=== PATIENT | female | born 1960 | race Hispanic/Latino ===

== ENCOUNTER 2017-10-24 05:42 | Day surgery (SDC) | payer MEDICAID ==
[2017-10-24] MEDS ORDERED: VIGAMOX OS SCH (06:00)
[2017-10-24] MEDS ORDERED: TETRACAINE 0.5% OS PRN ×2 (06:00)
[2017-10-24] MEDS ORDERED: MYDRIACYL OS SCH (06:00)
[2017-10-24] MEDS: MYDRIACYL OS SCH ×3 (06:50→07:00)
[2017-10-24] MEDS: VIGAMOX OS SCH ×3 (06:50→07:00)
[2017-10-24] MEDS: AK-Dilate OS SCH ×3 (06:50→07:00)
[2017-10-24] MEDS ORDERED: SUBLIMAZE ONE (07:02)
[2017-10-24] MEDS ORDERED: VERSED ONE (07:02)
--- NOTE | 2017-10-24 07:14 | Anesthesia Consultation ---
Anesthesia Consult and Med Hx Date of service: 10/24/17 - Airway Anesthetic Teeth Evaluation: Poor, Caps, Partials ROM Head & Neck: Adequate Mental/Hyoid Distance: Adequate Mallampati Class: Class II Intubation Access Assessment: Probably Good - Pulmonary Exam CTA: Yes - Cardiac Exam Cardiac Exam: RRR - Pre-Operative Health Status ASA Pre-Surgery Classification: ASA2 Proposed Anesthetic Plan: MAC - Pulmonary Hx Smoking: Yes (1/2 PPD SINCE HER 20'S) - Cardiovascular System Hx Hypertension: Yes (OVER 40 YEARS.not on meds) - Central Nervous System Hx Psychiatric Problems: No - Gastrointestinal Hx Gastroesophageal Reflux Disease: Yes - Other Systems Hx Alcohol Use: No Hx Substance Use: No Hx Cancer: No - Additional Comments Anesthesia Medical History Comments: Informed consent obtained
--- NOTE | 2017-10-24 07:14 | Anesthesia Day of Surgery ---
Anesthesia Day of Surgery - Day of Surgery Patient Examined: Yes Patient H&P Reviewed: Yes Patient is NPO: Yes
[2017-10-24] MEDS ORDERED: WATER FOR INJ (PF) 10 ML ONE (07:48)
[2017-10-24] MEDS ORDERED: LACTATED RINGERS 1,000 ML ONE (08:09)
--- NOTE | 2017-10-24 08:21 | Operative Report ---
Operative Report Operative Report: PATIENT'S NAME: DATE OF : DATE OF SURGERY: 10/24/2017 PREOPERATIVE DIAGNOSIS: Cataract left eye POSTOPERATIVE DIAGNOSIS: Same OPERATIVE PROCEDURE: Phacoemulsification with intraocular lens implantation, left eye SURGEON: Mara Wharton M.D. DIRECTOR TRADING SURGEON: Ernesto Lens: [id number] 24.0 D ANESTHESIA: Monitored anesthesia care in combination with topical and intracameral anesthesia because of the established specific risk of reflux, arrhythmias, or anxiety attacks associated with ocular manipulation, as well as the difficulty of the dock clerk to manage such potentially catastrophic events while simultaneously attempting to complete the surgical procedure and was deemed necessary for the patient's safety to have an Television Schedule Coordinator present during the procedure whenever possible. An Television Schedule Coordinator was utilized to regulate the intravenous sedation of the patient so the patient was cooperative yet not asleep in order for the patient to successfully maintain fixation of the eye on the operating light of the microscope. COMPLICATIONS: No surgical complications No blood loss. ALLERGIES: No known drug allergies PROGNOSIS: Excellent INDICATIONS FOR SURGERY: The patient is undergoing surgery in the hopes of eliminating or improving these visual difficulties. PROCEDURE: After arriving at the surgery center, the patient was given topical anesthetic and dilating drops, as noted in the record. The patient was then taken into the operating room and given more anesthetic drops. The eyelids , lashes, and lid margins were scrubbed with Betadine solution, and the patient was draped. The Nurse Television Schedule Coordinator administered IV sedation and monitored the patient during the procedure. The eye was then fixated with a 0.12, and a stab incision was made in the peripheral clear cornea into the anterior chamber. This was made on my left side. Viscoelastic was next used to fill the anterior chamber. The eye was once again fixated with the 0.12 forceps and a keratome was used make an incision in clear cornea peripherally on my right hand side temporally. The capsule forceps were used to open the central anterior capsule and then make a continuous round capsulotomy. Hydrodissection was carried out utilizing a cannula and balanced salt solution to delineate the cortical material from the capsule and the nucleus from the cortical material. The phaco tip was introduced into the eye and used to remove the anterior cortical material in the area of the capsulotomy. Then the phaco tip was buried into the nucleus, and a chopping instrument was introduced into the eye and used to provide countertraction in the nucleus between this instrument and the phaco tip fracturing the nucleus. This procedure was repeated multiple times, providing multiple small segments of the lens, and then the phaco tip was used to remove each of these segments. An I/A tip was then used to remove the remaining cortex. The anterior chamber was refilled with viscoelastic. An one-piece, acrylic intraocular lens was then placed into an inserting cartridge. The tip of the inserting cartridge was introduced into the keratome incision and into the anterior chamber. The implant was gently advanced through the cartridge and into the eye, where it unfolded, and both haptics were placed in the capsular bag, where it centered nicely and appeared to be well fixated. After placement of the intraocular lens, the I~and~A handpiece was placed back into the eye and used to remove the viscoelastic, including viscoelastic that was behind the optic of the intraocular lens. The anterior chamber was then filled with balanced salt solution, and hydration of the wound was used to cause swelling of the wound and more appropriate watertight closure. When the wound was found to be firm, the patient was asked to comment on how bright the light was. If there was no light perception at all or if the light was substantially dimmer than during the rest of the surgery, the amount of fluid in the eye was decompressed to lower the intraocular pressure until the patient could see the bright light again. This was done to avoid any damage or decreased blood flow to the optic nerve. MEDICATIONS APPLIED AT END OF SURGERY: One drop of Pred Forte and Vigamox The patient was given a shield to wear at night and was instructed not to rub or push on the eye. DISCHARGE SUMMARY: The patient was released in stable condition. The patient and those with the patient were given a written sheet of postoperative instructions and counseling on any abnormal laboratory studies. The patient is to see us tomorrow for follow-up in the office and is to call immediately for any difficulties. Mara Wharton M.D. Date
--- NOTE | 2017-10-24 08:21 | Short Stay Summary ---
Short Stay Documentation Date of service: 10/24/17 - History H&P: obtained from office - Allergies and Medications Current Medications: Allergies No Known Allergies Allergy (Verified 10/23/17 13:03) Home Medications Medication Instructions Recorded Confirmed Last Taken Type Ranitidine HCl [Heartburn Relief] 150 mg PO BID 10/23/17 10/24/17 10/23/17 History Active Medications Acetazolamide (Diamox) 500 mg PO BID ONE Stop: 10/24/17 08:21 Moxifloxacin HCl (Vigamox) 1 drops OS Q5MIN ASIA Stop: 10/24/17 15:00 Last Admin: 10/24/17 07:00 Dose: 1 drops Phenylephrine HCl (Ak-Dilate) 1 drops OS Q5MIN ASIA Stop: 10/24/17 15:00 Last Admin: 10/24/17 07:00 Dose: 1 drops Prednisolone Acetate (Pred Forte 1%) 1 drops OS QID ASIA Tetracaine HCl (Tetracaine 0.5%) 1 drops OS Q5M PRN PRN Reason: Analgesia Stop: 10/24/17 23:59 Last Admin: 10/24/17 06:50 Dose: 1 drops Tropicamide (Mydriacyl) 1 drops OS Q5MIN ASIA Stop: 10/24/17 15:00 Last Admin: 10/24/17 07:00 Dose: 1 drops - Brief post op/procedure progress note Date of procedure: 10/24/17 Pre-op diagnosis: left cataract Post-op diagnosis: same Procedure: Phacoemulsification with intraocular lens insertion left eye Anesthesia: MAC, local Surgeon: SHIRA BACK Estimated blood loss: none Pathology: none Condition: stable - Disposition Condition at discharge: Good Disposition: DC-01 TO HOME OR SELFCARE - Discharge Diagnoses (1) Cataract Status: Acute Qualifiers: Cataract type: age-related Age-related cataract type: nuclear Laterality : left Qualified Code(s): H25.12 - Age-related nuclear cataract, left eye Short Stay Discharge Plan Follow up with: KALLIE GARSIA MD [Primary Care Provider] - 7 Days
[2017-10-24] MEDS ORDERED: PRED FORTE 1% OS SCH (09:00)
[2017-10-24] MEDS ORDERED: DIAMOX PO ONE (09:00)
[2017-10-24 10:58] VITALS: BP 158/78
--- NOTE | 2017-10-24 14:30 | Post Anesthesia Evaluation ---
- Post Anesthesia Evaluation Patient Participated: Yes Airway Patent: Yes Stable Respiratory Function: Yes Nausea/Vomiting: No Temp > 96.8F: Yes Pain Manageable: Yes Adequeate Hydration: Yes Anesthesia Complications: No
[2017-10-24] MEDS ORDERED: AK-Dilate OS SCH (15:00)
== END 2017-10-24 09:00 | disposition home or self-care (01) ==
LOC: EDBD 05:42 → OR 05:42
DX: H26.9 Unspecified cataract (principal); I10 Essential (primary) hypertension; K21.9 Gastro-esophageal reflux disease without esophagitis; F17.210 Nicotine dependence, cigarettes, uncomplicated
CPT/HCPCS: 66984; J2250; J3010; J7120; V2632

== ENCOUNTER 2019-07-24 12:56 | Emergency (ER) | payer MEDICAID ==
[2019-07-24 13:02] VITALS: BP 148/102
--- NOTE | 2019-07-24 13:03 | Event Note ---
ED Screening Note Date of service: 07/24/19 Time: 13:01 ED Screening Note: 59 y o presents with mid abd pain with n/v x 2 days states took aleve pm no relief pmh: htn This initial assessment/diagnostic orders/clinical plan/treatment(s) is/are subject to change based on patients health status, clinical progression and re- assessment by fellow clinical providers in the ED. Further treatment and workup at subsequent clinical providers discretion. Patient/guardian urged not to elope from the ED as their condition may be serious if not clinically assessed and managed. Initial orders include: labs,ua
[2019-07-24 13:45] LABS: Hematocrit 48.7 % (30.3-42.9); Hemoglobin 16.5 gm/dl (10.1-14.3); Mean Corpuscular HGB Conc 34 % (30-34); Mean Corpuscular Volume 88 fl (79-97); Platelet Count 321 K/mm3 (140-440); Red Blood Count 5.51 M/mm3 (3.65-5.03); Red Cell Distribution Width 15.8 % (13.2-15.2)
[2019-07-24 14:04] LABS: Albumin 4.2 g/dL (3.9-5); Calcium 9.7 mg/dL (8.4-10.2)
[2019-07-24 14:38] LABS: Bacteria,Urine 1+ /HPF (Negative); Mucus,Urine 2+ /HPF
[2019-07-24 14:46] LABS: Bilirubin,Urine NEG (Negative); Blood,Urine NEG (Negative); Color,Urine Amber (Yellow); Urobilinogen,Urine < 2.0 mg/dL (<2.0)
[2019-07-24 15:08] LABS: Basophils % (Manual) 0 % (0.0-1.8); Eosinophils % (Manual) 0 % (0.0-4.3); Total Cells Counted 100
[2019-07-24 15:10] LABS: Anisocytosis Few; Target Cells Few
[2019-07-24] MEDS ORDERED: SODIUM CHLORIDE 0.9% 1000 ML 1,000 ML IV ONE (16:45)
[2019-07-24] MEDS ORDERED: FAMOTIDINE 20 MG/2 ML INJ IV ONE (16:47)
--- NOTE | 2019-07-24 16:52 | Emergency Department Report ---
ED N/V/D HPI - General Chief complaint: Nausea/Vomiting/Diarrhea Stated complaint: VOMTING/STOMACH PAINS Time Seen by Provider: 07/24/19 16:44 Source: patient Mode of arrival: Ambulatory Limitations: No Limitations - History of Present Illness MD complaint: nausea, vomiting (X 3 DAYS), diarrhea -: Sudden, days(s) (2 DAYS AGO) Description of Vomiting: food contents, watery Description of Diarrhea: water Associated Abdominal Pain: Yes (upper mid abdomen) Location: epigastric Severity: moderate Pain Scale: 4 Quality: cramping Improves with: none Worsens with: bowel movement Associated Symptoms: nausea/vomiting, weakness. denies: myalgias, chest pain, fever/chills, headaches, shortness of breath, syncope - Related Data Home Medications Medication Instructions Recorded Confirmed Last Taken Ranitidine HCl [Heartburn Relief] 150 mg PO BID 10/23/17 10/24/17 10/23/17 Previous Rx's Medication Instructions Recorded Last Taken Type Ondansetron [Zofran Odt] 4 mg PO Q8HR #12 tab.rapdis 07/24/19 Unknown Rx Allergies Allergy/AdvReac Type Severity Reaction Status Date / Time No Known Allergies Allergy Verified 07/24/19 12:57 ED Review of Systems ROS: Stated complaint: VOMTING/STOMACH PAINS Other details as noted in HPI Comment: All other systems reviewed and negative Gastrointestinal: abdominal pain, nausea, vomiting, diarrhea. denies: hematochezia ED Past Medical Hx - Past Medical History Hx Hypertension: Yes (OVER 40 YEARS.not on meds) Hx Arthritis: Yes Hx HIV: No Additional medical history: ulcer - Surgical History Hx Appendectomy: Yes - Social History Smoking Status: Current Every Day Smoker Substance Use Type: None - Medications Home Medications: Home Medications Medication Instructions Recorded Confirmed Last Taken Type Ranitidine HCl [Heartburn Relief] 150 mg PO BID 10/23/17 10/24/17 10/23/17 History Ondansetron [Zofran Odt] 4 mg PO Q8HR #12 tab.rapdis 07/24/19 Unknown Rx ED Physical Exam - General Limitations: No Limitations General appearance: alert, in no apparent distress - Head Head exam: Present: atraumatic - Eye Eye exam: Present: normal appearance - ENT ENT exam: Present: normal exam - Neck Neck exam: Present: normal inspection - GI/Abdominal GI/Abdominal exam: Present: soft, normal bowel sounds. Absent: distended, guarding, rebound, organomegaly, mass - Rectal Rectal exam: Present: deferred - Extremities Exam Extremities exam: Present: normal inspection - Skin Skin exam: Present: warm, dry, intact ED Course Vital Signs 07/24/19 13:01 Temperature 98.3 F Pulse Rate 122 H Respiratory 18 Rate Blood Pressure 148/102 O2 Sat by Pulse 95 Oximetry ED Medical Decision Making - Lab Data Result diagrams: 07/24/19 13:19 07/24/19 13:19 - Medical Decision Making This is a 59-year-old female she complains of nausea vomiting and diarrhea which started 2 days ago. Her last episode of vomiting was this morning. Last episode of diarrhea was last night. She denies fever chills chest pain and shortness of breath. She is complaining of feeling weak. Patient received 1 L of normal saline bolus and Pepcid 20 IV she is now stating that she is feeling much better and she is ready to go home Critical care attestation.: If time is entered above; I have spent that time in minutes in the direct care of this critically ill patient, excluding procedure time. ED Disposition Clinical Impression: Gastroenteritis Disposition: DC-01 TO HOME OR SELFCARE Is pt being admited?: No Does the pt Need Aspirin: No Condition: Stable Instructions: Gastroenteritis (ED) Additional Instructions: Follow up with your primary care doctor in 2-3 days. Return to the ER for any worsening symptoms. BRAT Diet. Bannas apple tea and rice. Stay hydrated. Stay away from diary products until stomach symptoms resolve. Take Zofran for nausea as prescribed. Prescriptions: Ondansetron [Zofran Odt] 4 mg PO Q8HR #12 tab.jesus
== END 2019-07-24 18:13 | disposition home or self-care (01) ==
LOC: ED 12:56
DX: K52.9 Noninfective gastroenteritis and colitis, unspecified (principal); I10 Essential (primary) hypertension; M19.90 Unspecified osteoarthritis, unspecified site; F17.200 Nicotine dependence, unspecified, uncomplicated; Z90.49 Acquired absence of other specified parts of digestive tract; Z79.899 Other long term (current) drug therapy
CPT/HCPCS: 36415; 80053; 81001; 83690; 85007; 85025; 87400; 96361; 96374; 99283; J7030